=== PATIENT | male | born 1985 | race Caucasian/White ===

== ENCOUNTER 2018-07-23 10:04 | Emergency (ER) | payer SELFPAY ==
--- NOTE | 2018-07-23 10:35 | Emergency Department Record ---
History of Present Illness - General Chief Complaint: Back Pain/Injury Stated Complaint: HURT BACK AT WORK Time Seen by Provider: 07/23/18 10:24 Source: Patient Mode of Arrival: Ambulatory Limitations: No limitations - History of Present Illness Initial Comments: Pt at work tried to move a heavy "1000#" object and felt sudden onset of pain to right lower back without radiation to the buttock or leg. No hx of Low back injury or back pains. No bowel or bladder incont. Pt has not been evaluated [employer], took two "500mg non asprin" pain pills at work without relief. Complaint: Back pain, Back injury Onset/Timin -: Hour(s) Similar Symptoms Previously: No Place: Work Severity: Moderate Severity scale (1-10): 7 Quality: Aching Consistency: Constant, Intermittent Context: Turning/twisting, While lifting Treatments Prior to Arrival: Acetaminophen - Related Data Previous Rx's Medication Instructions Recorded Diazepam [Valium] 10 mg PO QPM 6 Days #6 tablet 07/23/18 Ibuprofen [Motrin] 800 mg PO Q8H #30 tablet 07/23/18 Allergies Allergy/AdvReac Type Severity Reaction Status Date / Time No Known Drug Allergies Allergy Verified 07/23/18 10:14 Travel Screening - Travel/Exposure Within Last 30 Days Have you traveled within the last 30 days?: No - Travel/Exposure Within Last Year Have you traveled outside the [place] in the last year?: No - Additonal Travel Details Have you been exposed to anyone with a communicable illness?: No - Travel Symptoms Symptom Screening: None Review of Systems Constitutional: Denies: Chills, Fever Eyes: Denies: Eye discharge ENT: Denies: Congestion Respiratory: Denies: Cough Cardiovascular: Denies: Arrhythmia, Chest pain Endocrine: Denies: Fatigue Gastrointestinal: Denies: Abdominal pain Genitourinary: Denies: Discharge, Frequency Musculoskeletal: Reports: As per HPI, Back pain Skin: Denies: Bruising, Rash Neurological: Reports: Abnormal gait Psychiatric: Denies: Anxiety Hematological/Lymphatic: Denies: Anemia Past Medical History - SOCIAL HISTORY Smoking Status: Current every day smoker Alcohol Use: Rare Drug Use: None - RESPIRATORY Hx Respiratory Disorders: No - CARDIOVASCULAR Hx Cardio Disorders: No - NEURO Hx Neuro Disorders: No - GI Hx GI Disorders: No - Hx Genitourinary Disorders: No - ENDOCRINE Hx Endocrine Disorders: No - MUSCULOSKELETAL Hx Musculoskeletal Disorders: No - PSYCH Hx Psych Problems: No - HEMATOLOGY/ONCOLOGY Hx Hematology/Oncology Disorders: No Family Medical History Any Significant Family History?: Yes Family Hx Comment (NOT TO BE USED IN PLACE OF ITEMS BELOW): denies Physical Exam - General General Appearance: Alert, Oriented x3, Cooperative, Mild distress - Head Head exam: Atraumatic - Eye Eye exam: Normal appearance, PERRL - ENT ENT exam: Normal exam - Neck Neck exam: Normal inspection, Full ROM. negative: Tenderness - Respiratory Respiratory exam: Normal lung sounds bilaterally. negative: Respiratory distress, Wheezes - Cardiovascular Cardiovascular Exam: Regular rate, Normal rhythm, Normal heart sounds. negative : Tachycardia - GI/Abdominal GI/Abdominal exam: Soft, Normal bowel sounds. negative: Guarding, Tenderness - Extremities Extremities exam: Normal inspection, Full ROM. negative: Calf tenderness, Joint swelling - Back Back exam: Reports: Muscle spasm, Paraspinal tenderness, Tenderness. Denies: CVA tenderness (R), CVA tenderness (L), Vertebral tenderness (right L4-5 paraspinal tenderness to palpation with spasm. No pain to piriformis. ) - Neurological Neurological exam: Alert, Normal gait, Oriented X3, Reflexes normal (DTR patellar = bilateral, able to toe and heel walk. ). negative: Abnormal gait - Psychiatric Psychiatric exam: Normal affect, Normal mood. negative: Anxious - Skin Skin exam: Normal color. negative: Rash Course Vital Signs 07/23/18 10:09 Temperature 98.3 F Pulse Rate 90 Respiratory 18 Rate Blood Pressure 116/72 Pulse Ox 100 - Reevaluation(s) Reevaluation #1: 07/23/18 10:58 seen and examined. Muscle spasm without trauma. Discussed plan. Agrees. Valium for muscle spasm at bed time only (#6) Disposition Disposition: Discharge Clinical Impression: Acute lumbar myofascial strain Disposition: Home, Self-Care Condition: (1) Good Instructions: Low Back Strain (ED) Prescriptions: Diazepam [Valium] 10 mg PO QPM 6 Days #6 tablet Ibuprofen [Motrin] 800 mg PO Q8H #30 tablet Forms: Patient Portal Access Quality - Quality Measures Quality Measures: N/A - Blood Pressure Screening Does Patient Have Any of the Following: No Blood Pressure Classification: Normal BP Reading Systolic Measurement: 116 Diastolic Measurement: 72 Screening for High Blood Pressure: < Normal BP, F/U Not Required > [[id number]]
== END 2018-07-23 11:10 | disposition home or self-care (01) ==
LOC: ER 10:04
DX: S39.012A Strain of muscle, fascia and tendon of lower back, initial encounter (principal); X50.0XXA Overexertion from strenuous movement or load, initial encounter; Y99.0 Civilian activity done for income or pay; F17.210 Nicotine dependence, cigarettes, uncomplicated
CPT/HCPCS: 99282